=== PATIENT | female | born 1950 | race American Indian/Alaskan Native ===

== ENCOUNTER 2021-12-31 17:44 | Emergency (ER) | payer OTHER, SELFPAY ==
[2021-12-31] VITALS (11 sets, daily range): BP systolic 141–160; BP diastolic 64–76; PULSE 53–61; RESP 14–24; TEMP 36.5; O2SAT 95–98; BMI 29.4
--- NOTE | 2021-12-31 18:03 | ED_ITS ---
HPI - Syncope General Chief Complaint: Syncope Stated Complaint: Syncope Time Seen by Provider: 12/31/21 17:52 Source: patient, family () and EMS Mode of arrival: EMS Limitations: no limitations History of Present Illness HPI narrative: This is a 71-year-old female with history of hypertension and dyslipidemia who presents for unprovoked syncope. Patient states she was riding on a boat today they had been out in the sun all day, she states she had 2 to 2 and half alcoholic drinks at lunch and did not have any sensation that she was going to pass out. She had a witnessed episode while she was seated last approximately 1 minute bystanders laid her on the floor of the boat. She is some mild shaking o f her hands but no tonic-clonic motion. She promptly regained consciousness and did not have any confusion or postictal type state described. She did have any prodrome of symptoms prior to. She states she has not had similar issues in the past. No recent trauma. She denies any issues currently and feels back to her baseline. She denies fevers, chills, cold cough or congestion. Mild headache that just started to develop. No vision changes. No chest pain or shortness of breath. No nausea or vomiting. No diarrhea constipation, no urinary issues or swelling of her extremities. Patient is on 4 medications for blood pressure including atenolol, lisinopril, hydrochlorothiazide and amlodipine. She takes atorvastatin for cholesterol. Prior surgery includes appendectomy and single ovarian removal. No allergies to drugs. She quit smoking 15 years ago with a 5 total she typically has 1 alcoholic drink daily she had 2-2 and half today at lunch. No illicit. She has a brother who possibly had a cardiac event but she is unsure and denies any other family history or arrhythmias or embolic history. Related Data Allergies Allergy/AdvReac Type Severity Reaction Status Date / Time No Known Drug Allergies Allergy Verified 12/31/21 17:47 Review of Systems Review of Systems ROS Unobtainable: All systems reviewed & are unremarkable except as noted in HPI and below Patient History Social History Smoking Status: Former smoker Smoking Status: Former smoker alcohol intake frequency: 3 or more drinks per day Substance Use Type: does not use Exam Narrative Exam Narrative: GENERAL: Alert and oriented x three, female in mild distress HEENT: Head normocephalic, atraumatic, EOMI, pupils reactive, face symmetric, moist mucous membranes NECK: Supple, full range of motion CARDIOVASCULAR: Regular rate and rhythm without murmurs, rubs or gallops. RESPIRATORY: Breath sounds equal bilaterally, no wheezes rales or rhonchi. ABDOMEN: Soft, nontender. Normoactive bowel sounds all 4 quadrants. No guarding or rebound, rigidity, no mass : No CVA tenderness EXTREMITIES: Normal range of motion, no clubbing or edema. Neurovascularly intact NEUROLOGICAL: Cranial nerves II through XII grossly intact. Moving all extremities SKIN: Warm, dry, no petechiae, no rashes or lesions. Initial Vital Signs Initial Vital Signs: Vital Signs Temperature 97.7 F 12/31/21 17:47 Pulse Rate 60 12/31/21 17:47 Respiratory Rate 16 12/31/21 17:47 Blood Pressure 160/76 H 12/31/21 17:47 Pulse Oximetry 95 12/31/21 17:47 Oxygen Delivery Method 12/31/21 17:47 Course Orders Ordered: ED Orders 12/31/21 17:45 Complete Blood Count AUTO DIFF Stat Comprehensive Metabolic Panel Stat Lipase Stat Troponin & CK Cardiac Panel Stat 12/31/21 17:55 EKG-12 Lead Stat 12/31/21 18:03 Chest [XR chest 1V] Stat 12/31/21 18:30 COVID19 -Nasal RAPID/Pre-Proc Stat 12/31/21 19:45 Trop I [Troponin I] Stat 12/31/21 20:19 EKG-12 Lead Routine Discontinued Medications Sodium Chloride (Normal Saline 0.9%) 1,000 mls @ 1,000 mls/hr IV CONT MARVA Last Infusion: 12/31/21 20:30 Dose: 0 mls/hr Documented By: Admin: 12/31/21 18:18 Dose: 1,000 mls/hr Documented By: SHAHLA Vital Signs Vital signs: Vital Signs - 8 hr 12/31/21 17:47 12/31/21 17:58 12/31/21 17:53 Temperature 97.7 F Pulse Rate 60 59 L Respiratory Rate 16 21 Blood Pressure 160/76 H Blood Pressure [Orthostatic Lying] 146/64 H Blood Pressure [Orthostatic Sitting] 150/72 H Blood Pressure [Orthostatic Standing] 156/76 H Pulse Oximetry 95 97 Oxygen Delivery Method Room Air 12/31/21 17:58 12/31/21 17:58 12/31/21 18:00 Temperature Pulse Rate 59 L Respiratory Rate 17 Blood Pressure 146/64 H 153/74 H Blood Pressure [Orthostatic Lying] Blood Pressure [Orthostatic Sitting] Blood Pressure [Orthostatic Standing] Pulse Oximetry 98 Oxygen Delivery Method 12/31/21 18:00 12/31/21 18:30 12/31/21 18:30 Temperature Pulse Rate 61 58 L Respiratory Rate 24 Blood Pressure 158/73 H Blood Pressure [Orthostatic Lying] Blood Pressure [Orthostatic Sitting] Blood Pressure [Orthostatic Standing] Pulse Oximetry 98 97 Oxygen Delivery Method 12/31/21 19:00 12/31/21 19:00 12/31/21 19:31 Temperature Pulse Rate 57 L 61 Respiratory Rate 19 16 Blood Pressure 141/67 H Blood Pressure [Orthostatic Lying] Blood Pressure [Orthostatic Sitting] Blood Pressure [Orthostatic Standing] Pulse Oximetry 97 97 Oxygen Delivery Method 12/31/21 20:00 12/31/21 20:27 12/31/21 20:30 Temperature Pulse Rate 57 L 53 L 55 L Respiratory Rate 19 21 Blood Pressure Blood Pressure [Orthostatic Lying] Blood Pressure [Orthostatic Sitting] Blood Pressure [Orthostatic Standing] Pulse Oximetry 96 97 97 Oxygen Delivery Method 12/31/21 20:39 12/31/21 20:39 Temperature Pulse Rate 54 L Respiratory Rate 14 Blood Pressure 153/71 H Blood Pressure [Orthostatic Lying] Blood Pressure [Orthostatic Sitting] Blood Pressure [Orthostatic Standing] Pulse Oximetry 97 Oxygen Delivery Method MDM - Syncope Lab Data Result diagrams: 12/31/21 17:45 12/31/21 17:45 Labs: Lab Results 12/31/21 12/31/21 12/31/21 Range/Units 17:45 17:45 18:30 WBC 5.6 (4.5-11.0) X10^3/uL RBC 4.48 (4.0-5.2) X10^6/uL Hgb 14.2 (12.0-16.0) g/dL Hct 41.0 (36-46) % MCV 91.5 (80-100) fL MCH 31.6 (26-34) PG MCHC 34.5 (30-36) % RDW 15.8 H (11.6-14.8) % Plt Count 205 (150-400) X10^3/uL Neut % (Auto) 55.2 (50-75) % Lymph % (Auto) 23.8 L (25-40) % [place] % (Auto) 17.6 H (3-14) % Eos % (Auto) 2.4 (2-4) % Baso % (Auto) 1.0 (0-2) % Neut # (Auto) 3100 (4222-6576) /uL Lymph # (Auto) 1300 (3134-1424) /uL [place] # (Auto) 1000 H (0-900) /uL Eos # (Auto) 100 (0-450) /uL Baso # (Auto) 100 (0-100) /uL Sodium 135 L (137-145) mmol/L Potassium 4.0 (3.4-5.1) mmol/L Chloride 98 (98-107) mmol/L Carbon Dioxide 24 (22-32) mmol/L BUN 26 H (7-17) mg/dL Creatinine 1.02 (0.52-1.04) mg/dL Estimated GFR 59 L (>60) mL/min BUN/Creatinine Ratio 25.5 H (6-22) Glucose 109 (80-110) mg/dL Calcium 10.2 (8.4-10.2) mg/dL Total Bilirubin 1.6 H (0.2-1.3) mg/dL AST 55 H (14-36) IU/L ALT 41 H (<35) IU/L Alkaline Phosphatase 73 (38-126) U/L Total Creatine Kinase 333 H (30-135) U/L CK-MB (CK-2) 6.02 H (<2.37) ng/mL CK-MB (CK-2) Rel Index 1.8 (1.5-5.0) % Troponin I < 0.012 (0.01-0.034) ng/mL Total Protein 8.4 H (6.3-8.2) g/dL Albumin 5.0 (3.5-5.0) g/dL Globulin 3.4 (1.7-4.1) g/dL Albumin/Globulin Ratio 1.5 (1.0-2.8) Lipase 150 (23-300) U/L SARS-CoV-2 (PCR) Negative (Negative) 12/31/21 Range/Units 19:45 WBC (4.5-11.0) X10^3/uL RBC (4.0-5.2) X10^6/uL Hgb (12.0-16.0) g/dL Hct (36-46) % MCV (80-100) fL MCH (26-34) PG MCHC (30-36) % RDW (11.6-14.8) % Plt Count (150-400) X10^3/uL Neut % (Auto) (50-75) % Lymph % (Auto) (25-40) % [place] % (Auto) (3-14) % Eos % (Auto) (2-4) % Baso % (Auto) (0-2) % Neut # (Auto) (4754-8303) /uL Lymph # (Auto) (9771-5459) /uL [place] # (Auto) (0-900) /uL Eos # (Auto) (0-450) /uL Baso # (Auto) (0-100) /uL Sodium (137-145) mmol/L Potassium (3.4-5.1) mmol/L Chloride (98-107) mmol/L Carbon Dioxide (22-32) mmol/L BUN (7-17) mg/dL Creatinine (0.52-1.04) mg/dL Estimated GFR (>60) mL/min BUN/Creatinine Ratio (6-22) Glucose (80-110) mg/dL Calcium (8.4-10.2) mg/dL Total Bilirubin (0.2-1.3) mg/dL AST (14-36) IU/L ALT (<35) IU/L Alkaline Phosphatase (38-126) U/L Total Creatine Kinase (30-135) U/L CK-MB (CK-2) (<2.37) ng/mL CK-MB (CK-2) Rel Index (1.5-5.0) % Troponin I 0.013 (0.01-0.034) ng/mL Total Protein (6.3-8.2) g/dL Albumin (3.5-5.0) g/dL Globulin (1.7-4.1) g/dL Albumin/Globulin Ratio (1.0-2.8) Lipase (23-300) U/L SARS-CoV-2 (PCR) (Negative) Point of Care Testing Glucose POC 135 Imaging Data Chest x-ray: Radiologist's Impression: [address] [address] XRay Report Signed Patient: Socorro Aldridge MR#: [id number] : 1950 Acct:[id number] Age/Sex: 71 / F Date of Service: 12/31/21 Loc: ED Accession Number: [id number] ?? Procedure: XR chest 1V Ordering Provider: Melissa Britton D.O. PROCEDURE:? XR CHEST 1V ? INDICATIONS:? syncope ? TECHNIQUE:? One view of the chest was acquired.? ? COMPARISON:? None. ? FINDINGS:? ? Surgical changes and devices:? None.? ? Lungs and pleura:? Lungs are clear.? No pleural effusions or pneumothorax.? ? Mediastinum:? Mediastinal contours appear normal.? Heart size is normal.? ? Bones and chest wall:? No suspicious bony lesions.? Overlying soft tissues appear unremarkable.? ? IMPRESSION:? No acute cardiopulmonary findings ? ? ? Approved by: Sonny Salmeron M.D. on 12/31/2021 at 17:50? ECG Data Attestation: I personally reviewed and interpreted this ECG as follows: Interpretation: Sinus rhythm rate of 60 MO 200 QRS of 90 and QTC of 432. No acute ST changes appreciated. Q-wave in 3. Patient has no priors for comparison EKG 2 rate of 55 MO 198 QRS of 94 and QTC of 4-4. No acute ST elevation or depression noted. Patient has no dynamic changes from today's EKG. [facility] Narrative Medical decision making narrative: This is a 71-year-old female with history of hypertension and dyslipidemia. Patient had a syncopal episode while seated she had been out in the sun all day she states she did have several alcoholic drinks around lunchtime, she had about a 1 minute loss of consciousness which was witnessed with no tonic-clonic or postictal state, glucose was checked and was normal. Patient had resolution symptoms she is not had any additional since then with no acute cardiac, pulmonary, embolic vascular other clear causes of her symptoms today. Suspect that patient may have had some vasodilation secondary to alcohol use being out in the heat of the day she states it was very hot. Would recommend that she follow up for Holter monitor she has not had any arrhythmias here and further workup as directed by her primary care. Discharge Plan Departure Patient Disposition: Home Clinical Impression: Syncope Activity Restrictions/Additional Instructions: Follow up with your physician for recheck. Your syncopal episode today may have been a combination of being out today and alcohol but I do recommend have a Holter monitor or ZIO patch in the future outpatient. Talk with your primary care physician. Please return for fevers recurrent episodes of passing out, lightheadedness, severe headaches, new chest pain or shortness of breath, persistent vomiting, new swelling of extremities or other new or concerning symptoms. Visit Report Forms: Patient Portal/API
--- NOTE | 2021-12-31 18:03 | DI.RAD.S_ITS ---
PROCEDURE: XR CHEST 1V INDICATIONS: syncope TECHNIQUE: One view of the chest was acquired. COMPARISON: None. FINDINGS: Surgical changes and devices: None. Lungs and pleura: Lungs are clear. No pleural effusions or pneumothorax. Mediastinum: Mediastinal contours appear normal. Heart size is normal. Bones and chest wall: No suspicious bony lesions. Overlying soft tissues appear unremarkable. IMPRESSION: No acute cardiopulmonary findings Approved by: Sonny Salmeron M.D. on 12/31/2021 at 17:50
[2021-12-31 18:13] LABS: Add Manual Diff / Slide Review NO; Basophils Absolute Auto 100 /uL (0-100); Eosinophils Absolute Auto 100 /uL (0-450); Eosinophils Percent Auto 2.4 % (2-4); Hemoglobin 14.2 g/dL (12.0-16.0); Lymphocytes Absolute Auto 1300 /uL (1100-4500); Lymphocytes Percent Auto 23.8 % (25-40); Mean Corpuscular HGB Conc 34.5 % (30-36); Mean Corpuscular Hemoglobin 31.6 PG (26-34); Mean Corpuscular Volume 91.5 fL (80-100); Monocytes Absolute Auto 1000 /uL (0-900); Monocytes Percent Auto 17.6 % (3-14); Neutrophils Absolute Auto 3100 /uL (1500-7000); Neutrophils Percent Auto 55.2 % (50-75); Platelet Count 205 X10^3/uL (150-400); Red Blood Cell Count 4.48 X10^6/uL (4.0-5.2); Red Cell Distribution Width 15.8 % (11.6-14.8); White Blood Cell Count 5.6 X10^3/uL (4.5-11.0)
[2021-12-31 18:18] LABS: Alanine Aminotransferase 41 IU/L (<35); Albumin Globulin Ratio 1.5 (1.0-2.8); Alkaline Phosphatase 73 U/L (38-126); Aspartate Aminotransferase 55 IU/L (14-36); BUN Creatinine Ratio 25.5 (6-22); Bilirubin Total 1.6 mg/dL (0.2-1.3); Blood Urea Nitrogen 26 mg/dL (7-17); Calcium 10.2 mg/dL (8.4-10.2); Carbon Dioxide 24 mmol/L (22-32); Chloride 98 mmol/L (98-107); Creatine Kinase 333 U/L (30-135); Estimated Glomerular Filt Rate 59 mL/min (>60); Globulin 3.4 g/dL (1.7-4.1); Glucose 109 mg/dL (80-110); HEMOLYSIS < 15 (0-50); Lipase 150 U/L (23-300); Sodium 135 mmol/L (137-145); Total Protein 8.4 g/dL (6.3-8.2)
[2021-12-31] MEDS: SODIUM CHLORIDE 0.9% 1,000 ML 1000 ML IV (18:18)
[2021-12-31 18:29] LABS: Troponin I < 0.012 ng/mL (0.01-0.034)
[2021-12-31 18:33] LABS: CKMB % Relative Index 1.8 % (1.5-5.0); Creatine Kinase MB 6.02 ng/mL (<2.37)
[2021-12-31 18:55] LABS: COVID19 -Nasal RAPID Negative (Negative)
[2021-12-31 20:19] LABS: Troponin I 0.013 ng/mL (0.01-0.034)
== END 2021-12-31 20:47 | disposition home or self-care (01) ==
PROVIDERS: Emergency Medicine; Emergency Provider Emergency Medicine
DX: R55 Syncope and collapse (principal); Z20.822 Contact with and (suspected) exposure to COVID-19
CPT/HCPCS: 36415; 71045; 80053; 82550; 82553; 83690; 84484; 85025; 87635; 93005; 93010; 96360; 96361; 99284; C9803